=== PATIENT | female | born 1985 | race Caucasian/White ===

== ENCOUNTER 2017-03-22 12:45 | Day surgery (SDC) | payer OTHER ==
[~2017-03-22] VITALS: Ht 162.6 cm; Wt 77.8 kg
[2017-03-22 14:13] VITALS: Ht 162.6 cm; Wt 77.8 kg
[2017-03-22] MEDS ORDERED: IBUPROFEN (14:21)
[2017-03-22] MEDS ORDERED: VENTOLIN (14:21)
[2017-03-22 14:22] VITALS: BP 105/65; PULSE 65; RESP 15
[2017-03-22] MEDS ORDERED: FENTAnyl 50 MCG/ML VIAL ONE (16:24)
[2017-03-22] MEDS ORDERED: PROPOFOL 20 ML ONE (16:24)
[2017-03-22] MEDS ORDERED: ONDANSETRON 4 MG INJ ONE (17:12)
[2017-03-22 17:20] VITALS: BP 108/72; PULSE 63; RESP 18
--- NOTE | 2017-03-24 04:39 | GILP ---
DATE OF PROCEDURE: 03/22/2017 PROCEDURE: Esophagogastroduodenoscopy with biopsies. PREMEDICATION: Monitored anesthesia care by anesthesiologist. INSTRUMENT USED: Olympus panendoscope. SURGEON: Dionna Sales MD. TECHNIQUE: After informed consent, with the patient/relatives understanding the procedure, its indic ations, potential risks and complications, including but not limited to: allergic reaction, bleeding , perforation or infection, and after all pertinent questions were answered to the patients satisfac tion, the patient/relatives signed witnessed informed consent. Following this, premedication was administered slowly IV push under careful cardiovascular and respi ratory monitoring with pulse oximetry, automatic blood pressure and monitoring analyst. Once the sedative effect was achieved the patient was place in the left lateral decubitus, the panen doscope was introduced and advanced under visual control. Careful examination of the upper gastrointestinal tract, both on insertion as well as withdrawal of the instrument disclosed the following findings: ESOPHAGUS: The mucosa of the esophagus shows erythema and edema of the mucosa of a moderate degree. STOMACH: Upon entrance to the stomach, air was insufflated, the gastric mercer distended normally. There is erythema and edema of the mucosa of a moderate degree. Biopsies were obtained to rule out H. pylori infection. PYLORUS: The pylorus appears patent and within normal limits, with no evidence of gastric outlet ob struction. DUODENUM: The duodenal mucosa was carefully examined in the duodenal bulb as well as the second por tion of the duodenum and appears unremarkable with no evidence of duodenitis, ulcer or neoplasm. The instrument was then withdrawn, the patient tolerated the procedure well and was transfer out of the endoscopy suite awake, and in good condition to continue recovery under observation IMPRESSION: 1. Distal esophagitis, moderate. 2. Gastritis, moderate. Rule out H. pylori infection, biopsies obtained. PLAN: The patient will be treated with PPIs. Pathology will be reviewed as soon as available. Fur ther recommendations will depend on the patient's clinical course as well as review of pathology. Dictated By: DIONNA SALES MS/DARREN Conf#: [id number] DID#: [id number]
== END 2017-03-22 18:19 | disposition home or self-care (01) ==
LOC: GIL 12:45
PROVIDERS: ATTEND Internal Medicine Gastroenterology
DX: K20.8 Other esophagitis (principal); K29.70 Gastritis, unspecified, without bleeding
CPT/HCPCS: 43239; 84703; 88305; 88312; J2405; J3010; Z7610